=== PATIENT | female | born 1955 | race Caucasian/White ===

== ENCOUNTER → 2017-02-02 | Outpatient (REF) | payer OTHER ==
[~2017-02-02] MED LIST: AMBI12.52 PO; ATEN25TA PO; FEXO60CA PO; LOSA100T PO; OMEP40CA2 PO; SIMV20TA2 PO; SYNT25TA PO; VIT D PO; WELL100T PO
[2017-02-02 18:02] LABS: ALBUMIN 4.2 GM/DL (3.2-5.2); ALBUMIN/GLOBULIN RATIO 1.4 (1.00-1.93); BILIRUBIN,TOTAL 0.5 MG/DL (0.2-1.0); CALCIUM LEVEL 9.3 MG/DL (8.8-10.2); CREATININE FOR GFR 1.13 MG/DL (0.55-1.02); GLOMERULAR FILTRATION RATE 51.9 (>45); POTASSIUM SERUM 4.9 MEQ/L (3.5-5.1); TOTAL PROTEIN 7.2 GM/DL (6.4-8.2)
== END ==
LOC: M LAB REF 16:29
PROVIDERS: ATTEND Internal Medicine
DX: I10 Essential (primary) hypertension (principal); F41.9 Anxiety disorder, unspecified; E03.9 Hypothyroidism, unspecified

== ENCOUNTER → 2017-04-30 | Outpatient (REF) | payer OTHER | LOC: M LAB REF 16:31 | PROVIDERS: ATTEND Surgery | DX: J01.00 Acute maxillary sinusitis, unspecified (principal) ==

== ENCOUNTER → 2017-06-10 | Outpatient (CLI) | payer OTHER ==
[~2017-06-10] MED LIST changes: -LOSA100T PO; +LOSA100T8 PO
[2017-06-10 10:34] LABS: CALCIUM LEVEL 9.1 MG/DL (8.8-10.2); CREATININE FOR GFR 1.01 MG/DL (0.55-1.02); GLOMERULAR FILTRATION RATE 58.9 (>45); POTASSIUM SERUM 4.1 MEQ/L (3.5-5.1)
== END ==
LOC: M LAB 09:42
PROVIDERS: ATTEND Registered Nurse Emergency
DX: N13.30 Unspecified hydronephrosis (principal)

== ENCOUNTER → 2017-06-15 | Outpatient (CLI) | payer OTHER ==
--- NOTE | 2017-06-15 09:22 | REP ---
CT of the abdomen and pelvis without IV or bowel contrast: Comparison is the CT without IV and oral contrast dated 08/03/2014. There are no comparison route renal ultrasounds. The right kidney is markedly atrophic measuring 6.5 cm craniocaudad. The left kidney is normal size. The right renal pelvis and proximal right ureter at the UPJ are mildly dilated. The ureter distal to the UPJ is nondilated. There is no right perinephric stranding. There moderate to right renal calculus approximately 3 mm in diameter each. No right ureteral calculus. No bladder calculus. There are no left renal calculi. There is no left hydronephrosis. I suspect there are left renal parapelvic cysts. 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 This is unchanged. The left ureter is not dilated. There are no left ureteral calculus. There is no left perinephric stranding. There are phleboliths in the pelvis. No bladder calculi are identified. The visualized lung [place] are unremarkable. The unenhanced hepatic parenchyma, gallbladder, pancreas and spleen are unremarkable. The adrenals are unremarkable. The abdominal aorta, bowel and mesentery are unremarkable. Pelvis: The appendix is unremarkable. The uterus and adnexa are unremarkable. There is no ascites or adenopathy. The bladder is unremarkable. The pelvic bowel loops are unremarkable. Impression: Atrophic right kidney. Two nonobstructive right renal calculi. The proximal right ureter at the UPJ is mildly dilated. The right ureter is nondilated distal to this. No left hydronephrosis. Suspect there is a left parapelvic cyst. 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 There are no left renal calculi. There is no perinephric stranding on the right on the left. There are no ureteral or bladder calculi. There are phleboliths in the pelvis. Signed by Trever Shah MD 06/15/2017 09:14 A
== END ==
LOC: M RAD 08:10
PROVIDERS: ATTEND Registered Nurse Emergency
DX: N13.30 Unspecified hydronephrosis (principal); N28.9 Disorder of kidney and ureter, unspecified; N20.0 Calculus of kidney; I87.8 Other specified disorders of veins

== ENCOUNTER → 2018-09-28 | Outpatient (REF) | payer OTHER | LOC: M LAB REF 19:33 | DX: R30.0 Dysuria (principal) | CPT/HCPCS: 87086 ==

== ENCOUNTER → 2019-06-17 | Outpatient (REF) | payer MEDICARE, OTHER | LOC: M LAB REF 16:07 | PROVIDERS: ATTEND Nurse Practitioner Family | DX: N39.0 Urinary tract infection, site not specified (principal) ==

== ENCOUNTER → 2019-06-27 | Outpatient (REF) | payer MEDICARE, OTHER | LOC: M WUC 12:23 | PROVIDERS: ATTEND Physician Assistant | DX: N39.0 Urinary tract infection, site not specified (principal) ==

== ENCOUNTER → 2020-01-02 | Outpatient (CLI) | payer MEDICARE, OTHER ==
[~2020-01-02] MED LIST changes: -OMEP40CA2 PO; +OMEP40CA97 PO
--- NOTE | 2020-01-02 11:40 | REP ---
Right hip two views : There is no fracture or dislocation. Mineralization and joint spaces are normal. There are no calcifications or foreign bodies. Impression: Negative Right hip. If symptoms persist or worsen, consider MRI. . Electronically Signed by Trever Shah MD 01/02/2020 11:31 A
--- NOTE | 2020-01-02 11:40 | REP ---
Left knee four views : There is no fracture or dislocation. Mineralization and joint spaces are normal. There are no calcifications or foreign bodies. Impression: Negative left knee . Electronically Signed by Trever Shah MD 01/02/2020 11:31 A
== END ==
LOC: M WUC 10:17
PROVIDERS: ATTEND Physician Assistant
DX: M25.552 Pain in left hip (principal); M25.562 Pain in left knee; R22.42 Localized swelling, mass and lump, left lower limb; M79.652 Pain in left thigh

== ENCOUNTER → 2020-01-02 | Outpatient (CLI) | payer MEDICARE, OTHER ==
--- NOTE | 2020-01-02 11:36 | REP ---
Lower extremity deep vein duplex ultrasound: The deep veins demonstrate normal compression, normal Doppler color flow and normal Doppler waveforms with respiration and augmentation from the popliteal vein to the common femoral vein. Impression: There is no lower extremity deep vein thrombus. Electronically Signed by Trever Shah MD 01/02/2020 11:27 A
== END ==
LOC: M RAD 11:04
PROVIDERS: ATTEND Physician Assistant
DX: R22.42 Localized swelling, mass and lump, left lower limb (principal); M25.562 Pain in left knee; M79.652 Pain in left thigh

== ENCOUNTER → 2020-08-01 | Outpatient (REF) | payer MEDICARE, OTHER | LOC: M WUC 12:53 | PROVIDERS: ATTEND Nurse Practitioner Family | DX: N39.0 Urinary tract infection, site not specified (principal) ==

== ENCOUNTER → 2020-08-03 | Outpatient (CLI) | payer MEDICARE, OTHER | LOC: M LABSMTC 11:49 | PROVIDERS: ATTEND Orthopaedic Surgery Sports Medicine | DX: Z01.812 Encounter for preprocedural laboratory examination (principal); Z20.828 Contact with and (suspected) exposure to other viral communicable diseases ==

== ENCOUNTER 2021-02-17 07:51 | Emergency (ER) | payer MEDICARE, OTHER ==
[~2021-02-17] VITALS: Ht 160 cm; Wt 69.2 kg
[2021-02-17] MEDS ORDERED: OMEP-221 (08:00)
[2021-02-17] MEDS ORDERED: LOSA50TA5 (08:00)
[2021-02-17] MEDS ORDERED: AMIT25TA17 (08:00)
[2021-02-17] MEDS ORDERED: SERT50TA29 (08:00)
[2021-02-17] MEDS ORDERED: LEVO25TA5 (08:00)
[2021-02-17] MEDS ORDERED: BOOSTRIX/ADACEL VACCINE (DIPHTH/PERTUSS/ACELL/TETANUS) 0.5ML SYR IM ONE (08:25)
[2021-02-17] MEDS ORDERED: LIDOCAINE 2% MDV 20ML VIAL SC ONE (08:25)
--- NOTE | 2021-02-17 08:40 | REP ---
INDICATION: trauma/syncope. COMPARISON: None. TECHNIQUE: CT BRAIN PERFORMED IN THE AXIAL PLANE. CORONAL RECONSTRUCTION IMAGES ARE PERFORMED. FINDINGS: There is mild atrophy. There is no midline shift or mass effect. There are mild periventricular small vessel ischemic changes in the white matter symmetrically. There are mild basal ganglia calcifications. There is no acute intracranial hemorrhage or extra-axial fluid collection. No skull fracture is seen. There mild vascular calcifications in the carotid siphons. The visualized paranasal sinuses and mastoid air cells are clear. IMPRESSION: No acute intracranial hemorrhage, midline shift or mass effect. No skull fracture. Mild chronic changes. <Electronically signed by Trever Francois > 02/17/21 [id number]
[2021-02-17 08:41] LABS: BASO % 0.5 % (0.0-1.0); EOS # 0.1 10^3/uL (0.0-0.5); EOS % 0.8 % (0.0-3.0); HEMATOCRIT 43.6 % (36.0-47.0); HEMOGLOBIN 14.4 g/dl (12.0-15.5); LYMPH # 1.4 10^3/uL (1.5-5.0); LYMPH % 16.6 % (24.0-44.0); MEAN CORPUSCULAR HEMOGLOBIN 31.8 pg (27.0-33.0); MEAN CORPUSCULAR VOLUME 96.2 fl (80.0-96.0); MONO # 0.8 10^3/uL (0.0-0.8); MONO % 9.8 % (2.0-8.0); NEUTROPHILS # 6.1 10^3/uL (1.5-8.5); NEUTROPHILS % 72.1 % (36.0-66.0); PLATELET COUNT, AUTOMATED 246 10^3/uL (150-450); RED BLOOD COUNT 4.53 10^6/uL (4.00-5.40); WHITE BLOOD COUNT 8.5 10^3/uL (4.0-10.0)
--- NOTE | 2021-02-17 08:51 | REP ---
INDICATION: trauma/syncope. COMPARISON: None. TECHNIQUE: CT cervical spine performed in the axial plane, with sagittal and coronal reconstruction images performed. FINDINGS: There is no evidence of compression fracture. There is no prevertebral soft tissue swelling. There is 2 mm of anterolisthesis of C4. There is mild spurring of C3 through C5. There is moderate disc space narrowing and subchondral sclerosis at C3-4. There is diffuse narrowing, sclerosis and spurring at the posterior facet joints. The facet arthropathy is particularly significant on the left at the C3-4, C4-5 and C5-6 levels. There is mild curvature convex to the right. No abnormal density is seen in the spinal canal. IMPRESSION: No evidence of acute fracture or dislocation.Degenerative changes as discussed above. <Electronically signed by Trever Francois > 02/17/21 [id number]
--- NOTE | 2021-02-17 08:57 | REP ---
INDICATION: trauma/syncope. COMPARISON: None. TECHNIQUE: CT maxillofacial bones performed. Sagittal and coronal reconstruction images are performed. FINDINGS: The visualized osseous structures are intact with no evidence of acute fracture. The orbital floors are intact. The mandible and zygomatic arches are intact. The nasal bones are intact. The paranasal sinuses and mastoid air cells are clear. The globes appear intact. No significant soft tissue abnormality is seen. There is soft tissue calcification anterior to the mandible just to the right of midline. IMPRESSION: No acute findings. <Electronically signed by Trever Francois > 02/17/21 [id number]
--- NOTE | 2021-02-17 09:00 | REP ---
INDICATION: Syncope/near-syncope. COMPARISON: None. TECHNIQUE: SINGLE frontal VIEW OF THE CHEST WAS PERFORMED. FINDINGS: THERE IS NO ACUTE INFILTRATE OR PULMONARY EDEMA. LUNGS ARE CLEAR. There is mild bibasilar fibro atelectatic change. HEART IS NOT SIGNIFICANTLY ENLARGED. MEDIASTINAL SILHOUETTE IS UNREMARKABLE. THE VISUALIZED OSSEOUS STRUCTURES ARE INTACT. IMPRESSION: NO ACUTE PULMONARY DISEASE. <Electronically signed by Trever Francois > 02/17/21 [id number]
[2021-02-17 09:16] LABS: BLOOD UREA NITROGEN 16 MG/DL (7-18); CALCIUM LEVEL 9.1 MG/DL (8.8-10.2); CARBON DIOXIDE LEVEL 30 MEQ/L (21-32); CHLORIDE LEVEL 106 MEQ/L (98-107); CREATININE FOR GFR 0.92 MG/DL (0.55-1.30); FREE T4 0.87 NG/DL (0.76-1.46); GLOMERULAR FILTRATION RATE > 60.0 (>45); GLUCOSE, FASTING 115 MG/DL (70-100); MAGNESIUM LEVEL 2.1 MG/DL (1.8-2.4); POTASSIUM SERUM 4.5 MEQ/L (3.5-5.1); SODIUM LEVEL 139 MEQ/L (136-145)
[2021-02-17] MEDS ORDERED: METAL LOCK LOOP XX ONE (09:43)
[2021-02-17] MEDS ORDERED: BACI500O21 TOP (09:53)
[2021-02-17 10:14] VITALS: BP 138/81
--- NOTE | 2021-02-17 16:07 | ECGEPIP ---
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
== END 2021-02-17 10:14 | disposition home or self-care (01) ==
LOC: M ED 07:51
DX: Z53.29 Procedure and treatment not carried out because of patient's decision for other reasons (principal); R55 Syncope and collapse; S02.5XXA Fracture of tooth (traumatic), initial encounter for closed fracture; W19.XXXA Unspecified fall, initial encounter; Y92.9 Unspecified place or not applicable; Y93.9 Activity, unspecified; Y99.9 Unspecified external cause status; S01.419A Laceration without foreign body of unspecified cheek and temporomandibular area, initial encounter; M43.12 Spondylolisthesis, cervical region; M25.78 Osteophyte, vertebrae; M48.02 Spinal stenosis, cervical region; M50.80 Other cervical disc disorders, unspecified cervical region; F41.9 Anxiety disorder, unspecified; Z88.2 Allergy status to sulfonamides; Z91.89 Other specified personal risk factors, not elsewhere classified; Z91.041 Radiographic dye allergy status; Z91.013 Allergy to seafood

== ENCOUNTER → 2021-05-22 | Outpatient (CLI) | payer MEDICARE, OTHER ==
[~2021-05-22] MED LIST changes: +AMIT25TA17; +BACI500O21 TOP; +FUROSEMIDE 20MG/2ML VIAL (J1940) As Ordered ONE; +LEVO25TA5; +LOSA50TA5; +OMEP-221; +OMEP40CA4 PO; -OMEP40CA97 PO; +SERT50TA29
--- NOTE | 2021-05-22 12:31 | REP ---
INDICATION: HYDRONEPHROSIS-WITH GFR AND LASIX. COMPARISON: The only prior DTPA study for comparison is 01/10/2011 TECHNIQUE/RADIOTRACER AND DOSE: After the intravenous administration of 3.3 mCi of technetium 99 M DTPA a renal scan was obtained FINDINGS: Split differential analysis shows 86.7% of the counts coming from the left kidney and 13.3% of the counts coming from the right kidney The calculated left GFR is 81.6 mL/min The calculated right GFR is 12.5 mL/min The mean GFR calculation is 96.0 mL/min The renal DTPA scintiscan flow portion shows minimally increasing counts in the right kidney with evidence of left-sided pooling activity consistent with hydronephrosis. IMPRESSION: Hydronephrotic left kidney as on the prior exam with aberrant right renal function. <Electronically signed by Seabstien Valenzuela > 05/22/21 [id number]
== END ==
LOC: M RAD 09:06
PROVIDERS: ATTEND Physician Assistant
DX: N13.39 Other hydronephrosis (principal); N28.89 Other specified disorders of kidney and ureter
CPT/HCPCS: 78708; A9539; A9562; J1940

== ENCOUNTER → 2022-04-16 | Outpatient (CLI) | payer MEDICARE, OTHER ==
[~2022-04-16] MED LIST changes: -FUROSEMIDE 20MG/2ML VIAL (J1940) As Ordered ONE; -OMEP-221; +OMEP40CA5
== END ==
LOC: M WHC 08:50
PROVIDERS: ATTEND Internal Medicine
DX: Z12.31 Encounter for screening mammogram for malignant neoplasm of breast (principal)

== ENCOUNTER → 2022-07-15 | Outpatient (CLI) | payer MEDICARE, OTHER ==
[2022-07-15 15:16] LABS: CREATININE FOR GFR 1.13 MG/DL (0.55-1.30)
== END ==
LOC: M PLALAB 10:49
PROVIDERS: ATTEND Psychiatry & Neurology Neurology
DX: I10 Essential (primary) hypertension (principal)

== ENCOUNTER → 2023-08-26 | Outpatient (REF) | payer MEDICARE, OTHER ==
[~2023-08-26] MED LIST changes: -AMIT25TA17; +AMIT25TA19
== END ==
LOC: M LAB REF 16:03
PROVIDERS: ATTEND Nurse Practitioner Family
DX: R30.0 Dysuria (principal)

== ENCOUNTER → 2023-12-01 | Outpatient (CLI) | payer MEDICARE, OTHER ==
[2023-12-01 14:48] LABS: BASO # 0.1 10^3/uL (0.0-0.2); BASO % 0.8 % (0.0-1.0); EOS # 0.2 10^3/uL (0.0-0.5); EOS % 3.3 % (0.0-3.0); HEMATOCRIT 44.7 % (36.0-47.0); HEMOGLOBIN 14.4 g/dl (12.0-15.5); LYMPH # 2.1 10^3/uL (1.5-5.0); LYMPH % 34.7 % (24.0-44.0); MEAN CORPUSCULAR HEMOGLOBIN 31.9 pg (27.0-33.0); MEAN CORPUSCULAR HGB CONC 32.2 g/dl (32.0-36.5); MEAN CORPUSCULAR VOLUME 98.9 fl (80.0-96.0); MONO # 0.7 10^3/uL (0.0-0.8); MONO % 11.6 % (2.0-8.0); NEUTROPHILS % 49.4 % (36.0-66.0); PLATELET COUNT, AUTOMATED 206 10^3/uL (150-450); RED BLOOD COUNT 4.52 10^6/uL (4.00-5.40); WHITE BLOOD COUNT 6.1 10^3/uL (4.0-10.0)
[2023-12-01 15:07] LABS: LIPASE 26 U/L (12-53)
[2023-12-01 15:10] LABS: ALBUMIN 3.9 G/DL (3.2-5.2); ALKALINE PHOSPHATASE 70 U/L (46-116); ALT/SGPT 22 U/L (7.0-40); AMYLASE 93 U/L (30-118); AST/SGOT 24 U/L (<34); BILIRUBIN,DIRECT 0.1 MG/DL (<0.4); BILIRUBIN,TOTAL 0.4 MG/DL (0.3-1.2); BLOOD UREA NITROGEN 20 MG/DL (9-23); CALCIUM LEVEL 9.1 MG/DL (8.3-10.6); CARBON DIOXIDE LEVEL 30 MMOL/L (20-31); CHLORIDE LEVEL 106 MMOL/L (98-107); CREATININE FOR GFR 0.95 MG/DL (0.55-1.30); GLOMERULAR FILTRATION RATE > 60.0 (>45); GLUCOSE, FASTING 96 MG/DL (74-106); POTASSIUM SERUM 4.7 MMOL/L (3.5-5.1); SODIUM LEVEL 143 MMOL/L (136-145); TOTAL PROTEIN 6.6 G/DL (5.7-8.2)
== END ==
LOC: M WUC 10:32
PROVIDERS: ATTEND Physician Assistant Medical
DX: E66.9 Obesity, unspecified (principal)